=== PATIENT | female | born 1955 | race Caucasian/White ===

== ENCOUNTER → 2023-10-30 13:43 | Outpatient (REF) | payer BC, SELFPAY | LOC: WDC 13:43 | PROVIDERS: ATTENDING PHYSICIAN Nurse Practitioner Primary Care | DX: R92.2 Inconclusive mammogram (principal) | CPT/HCPCS: 76641 ==

== ENCOUNTER → 2024-08-08 15:49 | Outpatient (REF) | payer BC, SELFPAY | LOC: WDC 15:49 | PROVIDERS: ATTENDING PHYSICIAN Nurse Practitioner Primary Care | DX: Z12.31 Encounter for screening mammogram for malignant neoplasm of breast (principal) | CPT/HCPCS: 77063; 77067 ==

== ENCOUNTER 2024-09-05 13:25 | Outpatient (RCR) | payer BC, SELFPAY ==
[2024-09-05 14:10] VITALS: BP 157/95
[2024-09-05] MEDS: RECLAST 100 IV (14:23)
[2024-09-05 14:49] VITALS: BP 139/86
== END 2024-09-06 15:29 | disposition home or self-care (01) ==
LOC: OID 13:25
PROVIDERS: ATTENDING PHYSICIAN Nurse Practitioner Primary Care
DX: M81.0 Age-related osteoporosis without current pathological fracture (principal)
CPT/HCPCS: 96365; J3489

== ENCOUNTER 2025-05-20 04:43 | Emergency (ER) | payer MEDICARE, OTHER, SELFPAY ==
[2025-05-20 04:48] VITALS: BP 153/86
[2025-05-20 05:10] VITALS: BMI 25.0
--- NOTE | 2025-05-20 07:11 | ED.GENMED ---
History of Present Illness
General
Chief Complaint: Oral/Mouth Problem
Source: patient and spouse
Time Seen by Provider: 05/20/25 06:10
History of Present Illness
History of Present Illness:
Note:
CHIEF COMPLAINT(S)
Tongue swelling and discomfort on the left side of the tongue.
HISTORY OF PRESENT ILLNESS
The patient is a 70-year-old female who presented with a chief complaint of tongue swelling, which began after eating a sandwich the previous evening. The patient noted that her tongue was normal at bedtime, but upon waking at approximately 3 AM,
she realized the left side of her tongue was swollen. By 4 AM, the right side had also started to feel swollen, with sensations described as burning and tingling. The patient experienced difficulty speaking and discomfort swallowing saliva. She did
not attempt drinking fluids due to the discomfort and expressed concern about potential breathing difficulties due to the tongue swelling. The patient denied any known new exposures or allergic reaction history, and clarified she is not on blood
thinning medications. She did not take any kllt-isc-jbgjmor medication prior to the visit. Physical findings include mild bilateral lingual swelling, more pronounced on the left, without signs of drooling, stridor, voice changes, or bruising. The
patient has no history of PATEL inhibitor use, a known class of drugs associated with angioedema.
Additional historians
Patient spouse states that she was normal prior to that and since is improved but that her voice was altered and sounded thick
MEDICATIONS
The patient reports taking Synthroid, rosuvastatin, and indapamide.
PHYSICAL EXAM
General: Alert, no acute distress.
Skin: Warm, dry.
Head: Normocephalic, atraumatic.
Neck: Supple, trachea midline.
Eyes, Ears, Nose, Mouth, and Throat:
- Oral mucosa moist.
- Mild bilateral sublingual swelling, left greater than right.
- No drooling, stridor, voice change, trismus, or bruising noted.
Cardiovascular: Normal peripheral perfusion, no edema.
Respiratory: Respirations are non-labored.
Gastrointestinal: Abdomen nondistended.
Back: Normal range of motion, normal alignment.
Musculoskeletal: Normal range of motion, normal strength.
Neurological: Alert and oriented to person, place, time, and situation. No focal neurological deficit observed.
Psychiatric: Cooperative, appropriate mood & affect.
PLAN
- Administered a dose of steroids to reduce inflammation and prevent exacerbation of swelling.
- Advised the patient to monitor symptoms for improvement and to return if symptoms worsen, including increased swelling, drooling, or difficulty swallowing.
- Reassured the patient regarding airway safety and provided instructions for potential deterioration symptoms.
- Discussed the possibility of using Benadryl if symptoms worsen or if additional minor swelling occurs.
- Offered continuous communication for follow-up in case of symptom recurrence or exacerbation.
DIFFERENTIAL DIAGNOSIS
The Differential Diagnosis includes, in no particular order and is not limited to:
- Angioedema
- Allergic reaction
- Local trauma/irritation from tongue biting
- Infection (e.g., glossitis)
- Hereditary angioedema
- Medication reaction (though not from PATEL inhibitors)
- Idiopathic tongue swelling
- Oral edema due to systemic conditions
- Hypersensitivity reaction
- Miscellaneous oral pathology
Disposition:
SUMMARY OF ENCOUNTER
The patient, a 70-year-old female, presented with tongue swelling after eating a sandwich the prior evening. She experienced discomfort on the left side that later affected the right side as well. Symptoms included burning and tingling, difficulty
speaking, and difficulties swallowing saliva. There was no history of trauma, PATEL inhibitor use, or known allergies. Physical exam revealed mild bilateral lingual swelling, greater on the left. Administered one dose of steroids for inflammation and
considered her risk of airway compromise. After treatment, her symptoms improved, suggesting outpatient management and monitoring.
PLAN
- Administered one dose of steroids to manage inflammation and prevent exacerbation.
- Advised the patient to monitor for worsening symptoms, including increased swelling or difficulty swallowing, and to return if necessary.
- Scheduled outpatient follow-up and provided reassurance and instructions for monitoring airway safety.
MEDICATION RECONCILIATION
- Administered: One dose of steroids to reduce inflammation.
DIAGNOSIS
- Angioedema, unspecified (T78.3XXA)
- Lingual swelling, unspecified cause (R22.2)
Past History
Past History
ED Past Medical History: Hypothyroidism and Other
ED Past Surgical History: Gynecological, Urological and Other
Patient has exhibited threatening behavior?: No
Social History
Tobacco: Non-smoker
Alcohol: Occasional
Drug: None
Personal:
Living: with family
Employment: Employed
Family History
Family History: Other
Phy Exam
Physical Exam
Physical Exam:
.
Course
Orders/Labs/Results
Orders:
Orders
05/20/25 07:11
Prednisone [Deltasone] 50 mg PO NOW STA
Vital Signs
Initial and Last Documented VS:
Initial Vital Signs
Temp Pulse Resp BP Pulse Ox
98.2 F 101 20 153/86 98
05/20/25 04:48 05/20/25 04:48 05/20/25 04:48 05/20/25 04:48 05/20/25 04:48
Last Documented Vital Signs
Temp Pulse Resp BP Pulse Ox
98.2 F 101 20 153/86 97
05/20/25 04:48 05/20/25 04:48 05/20/25 04:48 05/20/25 04:48 05/20/25 06:15
*Pulse Oximetry
SaO2: 97
Oxygen Mode of Delivery: Room air
Patient hypoxic: no
*Critical Care Note
Total Time (30-74mins, 75-104mins- exclusive of procedures): Not Applicable
ED Attending Note
-
Portions of this chart may have been created with voice recognition software.� Occasional wrong word or��sound alike� substitutions may have occurred due to the inherent limitations of voice recognition software.
Discharge Plan
Departure
Patient Disposition: Home (Routine Discharge)
Date of Disposition: 05/20/25
Time of Disposition: 07:12
Patient with high blood pressure during this ER visit?: No
Discharge Problem:
Angioedema
Instructions: Angioedema, BLOOD PRESSURE
Prescriptions:
No Action
omeprazole 20 MG capsule,delayed release(DR/EC)
20 mg PO DAILYPRN PRN (Reason: ulcer flare up)
Ca-D3-mag ev-ydka-lvt-[place]-bor [Calcium 600-D3 Plus (mag-zinc)] 1 EACH tablet
1 ea PO DAILY
raloxifene 60 MG tablet
60 mg PO DAILY
ibuprofen 200 MG tablet
400 mg PO BIDPRN PRN (Reason: mild pain)
albuterol sulfate 1 PUFF HFA aerosol inhaler
1 puff inhalation R Q4HPRN PRN (Reason: sob)
levothyroxine 112 MCG tablet
137 mcg PO DAILY
budesonide-formoterol [Symbicort] 1 PUFF HFA aerosol inhaler
1 - 2 puff inhalation R BIDPRN PRN (Reason: sob)
cholecalciferol (vitamin D3) 2,000 UNITS tablet
2,000 units PO DAILY
diltiazem HCl 240 MG capsule,extended release 24hr
240 mg PO DAILY
rosuvastatin 10 MG tablet
10 mg PO QPM
Activity Restrictions/Additional Instructions:
Please see your doctor in the next 1 week for follow-up and reevaluation. Return immediately for worsening symptoms, difficulty speaking, difficulty swallowing, swelling of the tongue or lips or any other concerns.
Interventions
Interventions:
*Risk Screen - Suicide Last Done: 05/20/25 04:48
*General Assessment Last Done: 05/20/25 04:48
*Neglect/Abuse Screening Last Done: 05/20/25 04:48
*ED- Fall Risk Assessment Last Done: 05/20/25 04:48
*ED COVID-19 Vaccine History Last Done: 05/20/25 04:48
Discharge Date and Time
Print Language: MACEDONIAN
[2025-05-20] MEDS: DELTASONE 50 MG PO (07:21)
[2025-05-20 07:41] VITALS: BP 138/76
== END 2025-05-20 07:42 | disposition home or self-care (01) ==
LOC: EMR 04:43
PROVIDERS: EMERGENCY PHYSICIAN Emergency Medicine; FAMILY PHYSICIAN Nurse Practitioner Primary Care
DX: T78.3XXA Angioneurotic edema, initial encounter (principal); X58.XXXA Exposure to other specified factors, initial encounter; E03.9 Hypothyroidism, unspecified
CPT/HCPCS: 99283

== ENCOUNTER → 2025-08-08 07:15 | Outpatient (REF) | payer MEDICARE, OTHER, SELFPAY ==
[2025-08-08 09:17] LABS: Hematocrit 44.0 % (37.0-47.0); Hemoglobin 15.0 g/dL (12.0-16.0); Mean Corp Hgb Conc. 34.1 g/dL (33.0-37.0); Mean Corpuscular Volume 95.2 fL (81.0-99.0); Nucleated Red Blood Cells % 0 %; Platelet Count 309 10^3/uL (130-400); Red Cell Dist. Width 12.9 % (11.5-14.5)
[2025-08-08 10:00] LABS: ALT (SGPT) 16 U/L (0-35); AST (SGOT) 25 U/L (14-36); Albumin 4.6 g/dl (3.5-5.0); Alkaline Phosphatase 49 U/L (38-126); Blood Urea Nitrogen 9 mg/dl (7-17); Calcium 9.3 mg/dl (8.4-10.2); Carbon Dioxide 26 mmol/L (22-30); Chloride 100 mmol/L (98-107); Glucose 91 mg/dl (70-99); HDL Cholesterol 90 mg/dl; LDL Cholesterol, Calculated 136 mg/dl; Sodium 134 mmol/L (135-145); Total Protein 7.2 g/dl (6.3-8.2); Very Low Density Lipoprotein 22 mg/dl (0-30); eGFR > 60.00
[2025-08-08 10:05] LABS: Potassium 4.5 mmol/L (3.5-5.1)
[2025-08-08 10:08] LABS: Vitamin D, 25-OH*** 58.1 ng/mL (30-80)
[2025-08-08 10:22] LABS: TSH 1.87 uIU/ml (0.47-4.68)
== END ==
LOC: RAD 07:15
PROVIDERS: ATTENDING PHYSICIAN Internal Medicine Gastroenterology; FAMILY PHYSICIAN Nurse Practitioner Primary Care
DX: R10.13 Epigastric pain (principal); E03.9 Hypothyroidism, unspecified; M81.0 Age-related osteoporosis without current pathological fracture
CPT/HCPCS: 36415; 76700; 80053; 80061; 82306; 84439; 84443; 85025

== ENCOUNTER → 2025-08-14 13:48 | Outpatient (REF) | payer MEDICARE, OTHER, SELFPAY | LOC: WDC 13:48 | PROVIDERS: ATTENDING PHYSICIAN Nurse Practitioner Primary Care | DX: N32.89 Other specified disorders of bladder (principal); N39.498 Other specified urinary incontinence; Z12.31 Encounter for screening mammogram for malignant neoplasm of breast | CPT/HCPCS: 76770; 77063; 77067 ==